=== PATIENT | male | born 1940 | race Caucasian/White ===

== ENCOUNTER 2017-10-08 10:18 | Emergency (ER) | payer OTHER ==
--- NOTE | 2017-10-08 10:10 | EDPHY ---
H & P Constitutional: Initial Vital Signs Temperature (C) 97.9 F 10/08/17 10:24 Heart Rate 66 10/08/17 10:24 Respiratory Rate 16 10/08/17 10:24 Blood Pressure 113/73 10/08/17 10:24 O2 Sat (%) 94 10/08/17 10:24 O2 Delivery Mode Room Air Allergies/Adverse Reactions: No Known Allergies Allergy (Unverified 10/08/17 10:29) Home Medications: Medication Instructions Recorded Coumadin 10/08/17 Digoxin 10/08/17 Flomax 10/08/17 Medical Decision Making - Diagnostics Imaging Results: Imaging Impressions Cervical Spine CT 10/08/17 10:23 Impression: Left supraorbital laceration. Negative brain. No evidence of intracranial metastatic disease on this noncontrast study. 2. CT of the Facial Bones , 10:27 AM Indication: Trauma. Fall. Facial laceration. Technique: 0.625 mm thick collimated slices were obtained through the face from just below the mandible to above the frontal sinuses. The data was reconstructed in the sagittal and coronal planes. Dose reduction techniques were utilized. Findings: No facial bone fracture is identified. The left orbit, orbital rim, nasal bones and zygomatic arch are intact. The globes and intraconal structures look normal. The patient has had bilateral cataract surgery. Impression: Negative. 3. CT Cervical Spine Without Contrast History: Trauma. Fall. Technique: Multislice helical CT through the cervical spine without contrast from the skull base to T1. Soft tissue and bone evaluation is performed. Sagittal and coronal reconstructions are obtained and reviewed. Dose reduction techniques were utilized. Findings: There are scattered sclerotic lesions of varying sizes in the spine and ribs consistent with bony metastatic disease possibly of prostate origin. Cervical alignment is anatomic. No fracture or dislocation is identified. The relationship between skull base and C1 is normal. The C1-C2 articulation is normally aligned, but osteoarthritic. The odontoid process is intact. There is degenerative disk disease between C3 and C7. Facet joints are normally aligned. The cervical thoracic junction is normally aligned. Soft tissue window evaluation does not show evidence of epidural or prevertebral hematoma. There is biapical pleural parenchymal scarring and severe emphysema. There is no cervical adenopathy. Impression: 1. No acute posttraumatic abnormality identified. 2. 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 Results called to Dr. Dorantes at 11:31 AM. Final results are concordant with the initial interpretation. General information for patients regarding this examination can be found at [facility]. If you have questions or comments about this report, please contact me at ([facility]) or [phone] (cell). Head CT 10/08/17 10:23 Impression: Left supraorbital laceration. Negative brain. No evidence of intracranial metastatic disease on this noncontrast study. 2. CT of the Facial Bones , 10:27 AM Indication: Trauma. Fall. Facial laceration. Technique: 0.625 mm thick collimated slices were obtained through the face from just below the mandible to above the frontal sinuses. The data was reconstructed in the sagittal and coronal planes. Dose reduction techniques were utilized. Findings: No facial bone fracture is identified. The left orbit, orbital rim, nasal bones and zygomatic arch are intact. The globes and intraconal structures look normal. The patient has had bilateral cataract surgery. Impression: Negative. 3. CT Cervical Spine Without Contrast History: Trauma. Fall. Technique: Multislice helical CT through the cervical spine without contrast from the skull base to T1. Soft tissue and bone evaluation is performed. Sagittal and coronal reconstructions are obtained and reviewed. Dose reduction techniques were utilized. Findings: There are scattered sclerotic lesions of varying sizes in the spine and ribs consistent with bony metastatic disease possibly of prostate origin. Cervical alignment is anatomic. No fracture or dislocation is identified. The relationship between skull base and C1 is normal. The C1-C2 articulation is normally aligned, but osteoarthritic. The odontoid process is intact. There is degenerative disk disease between C3 and C7. Facet joints are normally aligned. The cervical thoracic junction is normally aligned. Soft tissue window evaluation does not show evidence of epidural or prevertebral hematoma. There is biapical pleural parenchymal scarring and severe emphysema. There is no cervical adenopathy. Impression: 1. No acute posttraumatic abnormality identified. 2. 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 Results called to Dr. Dorantes at 11:31 AM. Final results are concordant with the initial interpretation. General information for patients regarding this examination can be found at [facility]. If you have questions or comments about this report, please contact me at ([facility]) or [phone] (cell). Face CT 10/08/17 10:24 Impression: Left supraorbital laceration. Negative brain. No evidence of intracranial metastatic disease on this noncontrast study. 2. CT of the Facial Bones , 10:27 AM Indication: Trauma. Fall. Facial laceration. Technique: 0.625 mm thick collimated slices were obtained through the face from just below the mandible to above the frontal sinuses. The data was reconstructed in the sagittal and coronal planes. Dose reduction techniques were utilized. Findings: No facial bone fracture is identified. The left orbit, orbital rim, nasal bones and zygomatic arch are intact. The globes and intraconal structures look normal. The patient has had bilateral cataract surgery. Impression: Negative. 3. CT Cervical Spine Without Contrast History: Trauma. Fall. Technique: Multislice helical CT through the cervical spine without contrast from the skull base to T1. Soft tissue and bone evaluation is performed. Sagittal and coronal reconstructions are obtained and reviewed. Dose reduction techniques were utilized. Findings: There are scattered sclerotic lesions of varying sizes in the spine and ribs consistent with bony metastatic disease possibly of prostate origin. Cervical alignment is anatomic. No fracture or dislocation is identified. The relationship between skull base and C1 is normal. The C1-C2 articulation is normally aligned, but osteoarthritic. The odontoid process is intact. There is degenerative disk disease between C3 and C7. Facet joints are normally aligned. The cervical thoracic junction is normally aligned. Soft tissue window evaluation does not show evidence of epidural or prevertebral hematoma. There is biapical pleural parenchymal scarring and severe emphysema. There is no cervical adenopathy. Impression: 1. No acute posttraumatic abnormality identified. 2. 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 Results called to Dr. Dorantes at 11:31 AM. Final results are concordant with the initial interpretation. General information for patients regarding this examination can be found at [email or web address]. If you have questions or comments about this report, please contact me at (hospital) or [phone] (cell). Hand X-Ray 10/08/17 10:25 Impression: 1. Left fourth metacarpal phalangeal joint and fifth metacarpal- hamate dislocations. 2. Normal right hand. 2. Bilateral Wrists, 3 views of each History: Pain, trauma, fall Findings: Left wrist: The proximal fifth metacarpal is dislocated from its articulation with the hamate bone. No carpal fracture is identified. Right wrist: No fracture or dislocation identified. Impression: 1. Left hamate-fifth metacarpal dislocation. 2. Normal right wrist. Hand X-Ray 10/08/17 10:25 Impression: 1. Left fourth metacarpal phalangeal joint and fifth metacarpal- hamate dislocations. 2. Normal right hand. 2. Bilateral Wrists, 3 views of each History: Pain, trauma, fall Findings: Left wrist: The proximal fifth metacarpal is dislocated from its articulation with the hamate bone. No carpal fracture is identified. Right wrist: No fracture or dislocation identified. Impression: 1. Left hamate-fifth metacarpal dislocation. 2. Normal right wrist. Wrist X-Ray 10/08/17 10:25 Impression: 1. Left fourth metacarpal phalangeal joint and fifth metacarpal- hamate dislocations. 2. Normal right hand. 2. Bilateral Wrists, 3 views of each History: Pain, trauma, fall Findings: Left wrist: The proximal fifth metacarpal is dislocated from its articulation with the hamate bone. No carpal fracture is identified. Right wrist: No fracture or dislocation identified. Impression: 1. Left hamate-fifth metacarpal dislocation. 2. Normal right wrist. Wrist X-Ray 10/08/17 10:25 Impression: 1. Left fourth metacarpal phalangeal joint and fifth metacarpal- hamate dislocations. 2. Normal right hand. 2. Bilateral Wrists, 3 views of each History: Pain, trauma, fall Findings: Left wrist: The proximal fifth metacarpal is dislocated from its articulation with the hamate bone. No carpal fracture is identified. Right wrist: No fracture or dislocation identified. Impression: 1. Left hamate-fifth metacarpal dislocation. 2. Normal right wrist. Hand X-Ray 10/08/17 11:57 Impression: 1. Successful fourth MCP relocation. 2. Persistent fifth metacarpal base dislocation. Procedures: My involvement care this patient is for the procedures. Please see the note of Dr. Dorantes for all other aspects of care. PROCEDURE: Laceration repair, 1. Left palm Consent: Verbal Location: Left palm near the base of the 4th MCP extending ulnar Length of repair: 5 cm curvilinear Complexity: Complex Layer involvement: Single Anesthesia: Local per 1% lidocaine plain. 10 mL Irrigation: Extensive Debridement: None Procedure description: Following good anesthesia, the wound was copiously irrigated. Wound bed was explored and there is no foreign body noted. Wound borders were approximated well with good hemostasis. Tolerated well without complication. Suture/Staple material: 5-0 Ethilon, 10 simple interrupted sutures Wound care: Routine as discussed Suture/Staple removal: 10 Days PROCEDURE: Laceration repair, 2. Forehead, lateral Consent: Verbal Location: Forehead, lateral Length of repair: 2 cm Complexity: Simple Layer involvement: Single Anesthesia: Local. 1% lidocaine plain. 5 mL Irrigation: Extensive Debridement: None Procedure description: Following good anesthesia, the wound was copiously irrigated. Wound bed was explored and there is no foreign body noted. There is no trauma to the galea. Wound borders were approximated well with good hemostasis. Tolerated well without complication. Suture/Staple material: 6-0 Prolene, 4 simple interrupted sutures Wound care: Routine as discussed Suture/Staple removal: 7 Days PROCEDURE: Laceration repair, 3. Forehead, medial Consent: Verbal Location: Forehead, medial Length of repair: 2 cm Complexity: Simple Layer involvement: Single Anesthesia: Local. 1% lidocaine plain. 4 mL Irrigation: Extensive Debridement: None Procedure description: Following good anesthesia, the wound was copiously irrigated. Wound bed was explored and there is no foreign body noted. No trauma to the galea Wound borders were approximated well with good hemostasis. Tolerated well without complication. Suture/Staple material: 6-0 Prolene, 4 simple interrupted sutures Wound care: Routine as discussed Suture/Staple removal: 7 Days PROCEDURE: Closed reduction of MCP Consent: Verbal Location: Left 4th MCP joint Anesthesia: None Procedure: After consent time-out, the left 4th MCP was reduced with traction and volar pressure. This was done without difficulty and without complication. Tolerated well. Significant reduction in pain postprocedure. Neurovascular intact with brisk cap refill pre and postprocedure. Complications: None Post-reduction film: Successful reduction of the MCP dislocation. (Ayad Toribio ) ED Course/Re-evaluation: CHIEF COMPLAINT: Mechanical fall HISTORY OF PRESENT ILLNESS: 76-year-old gentleman who presented as a limited trauma +activation due to the fact that he tripped on a step and hit his head. He is on Coumadin. He denies loss of consciousness. He states he does not have a perfect memory of the event when he 1st hit. His was with him. It was clearly mechanical. He is complaining of bilateral wrist and hand pain. He is also complaining of an abrasion and laceration of the left forehead over the left eyebrow. He takes Coumadin for both mechanical heart valve and atrial fibrillation. REVIEW OF SYSTEMS: A 10 point review of systems was performed and is negative with the exception of the elements mentioned in the history of present illness. PHYSICAL EXAM: HR, BP, O2 Sat, RR. Temp noted General Appearance: Alert, well hydrated, appropriate, and non-toxic appearing. Head: Atraumatic without scalp tenderness or obvious injury Eyes: Pupils equal, round, reactive to light and accommodation, EOMI, no trauma , no injection. Ears: Clear bilaterally, no perforation, normal landmarks Nose: Atraumatic, no rhinorrhea, clear. Throat: There is no erythema or exudates, no lesions, normal tonsils, mucus membranes moist. Neck: Supple, 2+ carotid upstroke, nontender, no lymphadenopathy. Respiratory: No retractions, no distress, no wheezes, and no accessory muscle use. Lungs are clear to auscultation bilaterally. Cardiovascular: Regular rate and rhythm, no murmurs, rubs, or gallops. Bilateral carotid, radial, dorsalis pedis, and posterior tibial pulses intact. Good capillary refill all extremities. Gastrointestinal: Abdomen is soft, nontender, non-distended, no masses, no rebound, no guarding, no peritoneal signs. Musculoskeletal: Normal active ROM of all extremities, atraumatic. Neurological: Alert, appropriate, and interactive. The patient has normal DTRs and non-focal cranial nerves, motor, sensory, and cerebellar exam. Skin: Lacerations abrasions contusions of the left eyebrow. Those will be repaired by Felix Toribio. Also some lacerations on hand and fingers which will be repaired as above. No rashes, good turgor, no nodules on palpation. Past medical history: Atrial fibrillation mechanical heart valve anticoagulated Past surgical history: Mechanical heart valve Family history: Noncontributory Social history: , retired, accompanied here by numerous family members, does not abuse tobacco drugs or alcohol DIAGNOSTICS/PROCEDURES/CRITICAL CARE TIME: Study: CT of the head, cervical spine, maxillofacial without contrast Indication: trauma on blood thinners Results: CT scan of the body parts was obtained. The results of the study are no acute process from the trauma. Significant bony metastases from prostate cancer which the patient knows about.. The study was read by the radiologist, Dr. Scott Frances . I viewed the images myself on the PACS system. Study: bilateral wrist and hand Indication: trauma Results: After viewing the images myself on the PACS system. My interpretation of the images is: Left ring finger dislocation at the PIP. Left little finger dislocation at the level of the carpal bone hamate. The radiologist interpretation is pending at the time of this dictation. I have discussed the above x-rays with the radiologist. DIFFERENTIAL DIAGNOSIS: The differential diagnosis for the patient's trauma included but was not limited to intracranial injury, long bone and pelvic bone fractures, spinal injury, intra-abdominal injury, and intra-thoracic injury. MEDICAL DECISION MAKING: This patient is alert awake and oriented. He clearly had a mechanical fall. He has an abrasion laceration of the left eyebrow. He has bilateral hand wrist pain with some lacerations. CT scan is pending. Laboratory studies including his INR is pending also. This patient has a therapeutic INR. He has left finger injuries with some lacerations that Ayad toribio is repairing. Felix also relocated the finger. This patient has no intracranial hemorrhage. No cervical spine injury. No maxillofacial fractures. He has also oft tissue injuries besides the finger injury. He will be appropriately sutured and splinted. He will follow up with primary care doctor. He does have numerous bony metastases which she knows about. (Dejuan Dorantes) - Data Points Laboratory Results: Laboratory Results 10/08/17 10:36 10/08/17 10:36 10/08/17 10/08/17 10/08/17 10:36 10:36 10:36 WBC 4.88 10^3/uL 10^3/uL (3.80-9.50) RBC 4.56 10^6/uL 10^6/uL (4.40-6.38) Hgb 14.1 g/dL g/dL (13.7-17.5) Hct 41.0 % % (40.0-51.0) MCV 89.9 fL fL (81.5-99.8) MCH 30.9 pg pg (27.9-34.1) MCHC 34.4 g/dL g/dL (32.4-36.7) RDW 13.5 % % (11.5-15.2) Plt Count 343 10^3/uL 10^3/uL (150-400) MPV 9.8 fL fL (8.7-11.7) Neut % (Auto) 45.9 % % (39.3-74.2) Lymph % (Auto) 36.9 % % (15.0-45.0) [place] % (Auto) 11.9 % % (4.5-13.0) Eos % (Auto) 3.9 % % (0.6-7.6) Baso % (Auto) 0.8 % % (0.3-1.7) Nucleat RBC Rel Count 0.0 % % (0.0-0.2) Absolute Neuts (auto) 2.24 10^3/uL 10^3/uL (1.70-6.50) Absolute Lymphs (auto) 1.80 10^3/uL 10^3/uL (1.00-3.00) Absolute Monos (auto) 0.58 10^3/uL 10^3/uL (0.30-0.80) Absolute Eos (auto) 0.19 10^3/uL 10^3/uL (0.03-0.40) Absolute Basos (auto) 0.04 10^3/uL 10^3/uL (0.02-0.10) Absolute Nucleated RBC 0.00 10^3/uL 10^3/uL (0-0.01) Immature Gran % 0.6 % % (0.0-1.1) Immature Gran # 0.03 10^3/uL 10^3/uL (0.00-0.10) PT 34.3 SEC H SEC (12.0-15.0) INR 3.33 H (0.83-1.16) APTT 64.2 SEC H SEC (23.0-38.0) Sodium 141 mEq/L mEq/L (134-144) Potassium 4.2 mEq/L mEq/L (3.5-5.2) Chloride 103 mEq/L mEq/L (97-110) Carbon Dioxide 29 mEq/l mEq/l (22-31) Anion Gap 9 mEq/L mEq/L (8-16) BUN 20 mg/dL mg/dL (7-23) Creatinine 1.0 mg/dL mg/dL (0.7-1.3) Estimated GFR > 60 Glucose 103 mg/dL H mg/dL (70-100) Calcium 8.8 mg/dL mg/dL (8.5-10.4) Medications Given: Discontinued Medications Tetracaine/Epinephrine/Lidocaine (Let Gel Topical) 1 ea TP EDNOW ONE Stop: 10/08/17 11:25 Last Admin: 10/08/17 11:25 Dose: 1 ea Departure - Departure Clinical Impression: Finger dislocation Qualifiers: Encounter type: initial encounter Qualified Code(s): S63.259A - Unspecified dislocation of unspecified finger, initial encounter Fall Qualifiers: Encounter type: initial encounter Qualified Code(s): W19.XXXA - Unspecified fall, initial encounter Facial trauma Qualifiers: Encounter type: initial encounter Qualified Code(s): S09.93XA - Unspecified injury of face, initial encounter Face lacerations Qualifiers: Encounter type: initial encounter Qualified Code(s): S01.81XA - Laceration without foreign body of other part of head, initial encounter Hand laceration Qualifiers: Encounter type: initial encounter Foreign body presence: without foreign body Laterality: left Qualified Code(s): S61.412A - Laceration without foreign body of left hand, initial encounter Instructions: Fall Prevention for Older Adults (ED), Finger Dislocation (ED), Abrasion (ED) Referrals: Patient,NotPresent [Unknown] - As per Instructions Maria Victoria Rodriguez MD [Medical Doctor] - 2-3 days without fail
[2017-10-08 10:29] VITALS: BP 113/73; PULSE 66; RESP 16; TEMP 97.9; O2SAT 94
[2017-10-08 10:39] LABS: % IMMATURE GRANULYOCYTES 0.6 % (0.0-1.1); ABSOLUTE IMMATURE GRANULOCYTES 0.03 10^3/uL (0.00-0.10); ADD DIFF? NO; ADD MORPH? NO; ADD SCAN? NO; ATYPICAL LYMPHOCYTE FLAG 0 (0-99); FRAGMENT RBC FLAG 0 (0-99); HEMOGLOBIN 14.1 g/dL (13.7-17.5); LEFT SHIFT FLG 0 (0-99); LIPEMIA HEMOLYSIS FLAG 90 (0-99); MEAN CELL HEMOGLOBIN 30.9 pg (27.9-34.1); MEAN CELL HEMOGLOBIN CONCENTR. 34.4 g/dL (32.4-36.7); MEAN CELL VOLUME 89.9 fL (81.5-99.8); MEAN PLATELET VOLUME 9.8 fL (8.7-11.7); PLATELET CLUMPS FLAG 10 (0-99); PLATELET COUNT 343 10^3/uL (150-400); RED BLOOD CELL COUNT 4.56 10^6/uL (4.40-6.38); RED CELL DISTRIBUTION WIDTH 13.5 % (11.5-15.2)
[2017-10-08 10:50] LABS: INR 3.33 (0.83-1.16); PROTIME(PATIENT) 34.3 SEC (12.0-15.0)
[2017-10-08 10:51] LABS: ANION GAP 9 mEq/L (8-16); APTT 64.2 SEC (23.0-38.0); CALCIUM 8.8 mg/dL (8.5-10.4); CARBON DIOXIDE 29 mEq/l (22-31); CHLORIDE 103 mEq/L (97-110); GLOMERULAR FILTRATION RATE > 60; GLUCOSE 103 mg/dL (70-100); POTASSIUM 4.2 mEq/L (3.5-5.2); SODIUM 141 mEq/L (134-144)
[2017-10-08] MEDS ORDERED: LET GEL TOPICAL 1 EA SYR TP ONE ×2 (11:10→11:24)
--- NOTE | 2017-10-08 13:38 | ASDISCHSUM ---
Discharge Information Plan Status:Home with No Needs Medically Cleared to Leave: Discharge Date:10/08/2017 01:33 PM CM D/C Disposition:Home, Routine, Self-Care ADT D/C Disposition:Home, Routine, Self-Care Projected Discharge Date:10/08/2017 01:33 PM Transportation at D/C:Family Discharge Delay Reason: Follow-Up Date:10/08/2017 01:33 PM Discharge Slot: Final Diagnosis: Placement Information Patient Contact Information Contact Name:CHAD Relationship: Address:[address] Work Phone: City:[facility] Phone: [facility]/Zip Code:[place] [address] Email: Financial Information Financial Class:Medicare Advantage Plans Primary Plan Desc:[employer] GOLD MEDICARE Primary Plan Number:[id number] Secondary Plan Desc: Secondary Plan Number: Assessment Information LACE LACE Acuity / Level of Care Answers: No. Emergency dept visits in Answers: 1 last 6 months Score: 1 Date Signed: 10/08/2017 01:37 PM Electronically Signed By:Gudelia Garcia RN Intervention Information
== END 2017-10-08 13:33 | disposition home or self-care (01) ==
PROC: 0RSVXZZ Reposition Left Metacarpophalangeal Joint, External Approach (ICD-10-PCS; principal; 2017-10-08)
PROC: 0HQGXZZ Repair Left Hand Skin, External Approach (ICD-10-PCS; 2017-10-08)
PROC: 0HQ1XZZ Repair Face Skin, External Approach (ICD-10-PCS; 2017-10-08)
DX: S01.81XA Laceration without foreign body of other part of head, initial encounter (principal); S63.265A Dislocation of metacarpophalangeal joint of left ring finger, initial encounter; S61.412A Laceration without foreign body of left hand, initial encounter; Z79.01 Long term (current) use of anticoagulants; W01.198A Fall on same level from slipping, tripping and stumbling with subsequent striking against other object, initial encounter; Y99.8 Other external cause status
CPT/HCPCS: G0390